=== PATIENT | male | born 1945 | race Caucasian/White ===

== ENCOUNTER 2021-08-17 07:32 | Emergency (ER) | payer MEDICARE, MEDICAID ==
[2021-08-17 08:10] LABS: PTT,PARTIAL THROMBOPLSTIN TIME 22.8 SEC (22.8-31.4)
[2021-08-17 08:14] LABS: ANION GAP 19.4 mmol/L (5-15); CHLORIDE,CL 103 mmol/L (98-107); SODIUM,NA 139 mmol/L (136-145)
[2021-08-17] MEDS: ALTEPLASE IV ONE (08:55)
[2021-08-17] MEDS ORDERED: Sodium Chloride 0.9% 10 ML Syringe FLUSH PRN (09:06)
== END 2021-08-17 09:30 ==
LOC: KA.ED 07:32
DX: I63.9 Cerebral infarction, unspecified (principal); I45.10 Unspecified right bundle-branch block; I44.0 Atrioventricular block, first degree; Z20.822 Contact with and (suspected) exposure to COVID-19
CPT/HCPCS: 36415; 37195; 70450; 73030; 80053; 82550; 84484; 85025; 85610; 85730; 99285; J2997; Q3014; U0002; 93005

== ENCOUNTER 2021-08-26 10:09 | Inpatient (IN) | payer MEDICARE, MEDICAID ==
[2021-08-27] MEDS ORDERED: Acetaminophen 325 MG Tab PO PRN (17:07)
[2021-08-27] MEDS: Tamsulosin 0.4 MG Cap.ER PO SCH (20:01)
[2021-08-27] MEDS: atorvaSTATin 10 MG Tab PO SCH (20:02)
[2021-08-27] MEDS: Enoxaparin 100 MG/1 ML Syringe SUBCUT SCH (20:03)
[2021-08-28] MEDS: Enoxaparin 100 MG/1 ML Syringe SUBCUT SCH ×2 (08:35→20:26)
[2021-08-28] MEDS: Multivitamins with Minerals/Iron/Folic Acid/Lycopene Tab PO SCH (08:37)
[2021-08-28] MEDS: Finasteride 5 MG Tab PO SCH (08:37)
[2021-08-28] MEDS: Metoprolol Succinate 25 MG Tab.ER PO SCH (08:37)
[2021-08-28] MEDS: Tamsulosin 0.4 MG Cap.ER PO SCH (20:24)
[2021-08-28] MEDS: Ciprofloxacin 500 MG Tab PO SCH (20:25)
[2021-08-28] MEDS: atorvaSTATin 10 MG Tab PO SCH (20:25)
[2021-08-28] MEDS ORDERED: Lidocaine 2% Jelly 5 ML Tube TOP ONE (20:34)
[2021-08-28] MEDS ORDERED: Warfarin 2.5 MG Tab PO ONE (21:00)
[2021-08-28] MEDS ORDERED: Ciprofloxacin 500 MG Tab PO SCH (21:00)
[2021-08-28] MEDS: Acetaminophen 325 MG Tab PO PRN (21:11)
[2021-08-29 07:41] LABS: ANION GAP 11.1 mmol/L (5-15); CHLORIDE,CL 102 mmol/L (98-107); SODIUM,NA 137 mmol/L (136-145)
[2021-08-29] MEDS: Multivitamins with Minerals/Iron/Folic Acid/Lycopene Tab PO SCH (08:15)
[2021-08-29] MEDS: Ciprofloxacin 500 MG Tab PO SCH ×2 (08:15→20:00)
[2021-08-29] MEDS: Finasteride 5 MG Tab PO SCH (08:16)
[2021-08-29] MEDS: Metoprolol Succinate 25 MG Tab.ER PO SCH (08:28)
[2021-08-29] MEDS: Enoxaparin 100 MG/1 ML Syringe SUBCUT SCH ×2 (08:30→20:01)
[2021-08-29] MEDS: Acetaminophen 325 MG Tab PO PRN (17:09)
[2021-08-29] MEDS ORDERED: Warfarin 2 MG Tab PO SCH (18:00)
[2021-08-29] MEDS: atorvaSTATin 10 MG Tab PO SCH (20:00)
[2021-08-29] MEDS: Tamsulosin 0.4 MG Cap.ER PO SCH (20:00)
[2021-08-30] MEDS: Metoprolol Succinate 25 MG Tab.ER PO SCH (07:59)
[2021-08-30] MEDS: Multivitamins with Minerals/Iron/Folic Acid/Lycopene Tab PO SCH (07:59)
[2021-08-30] MEDS: Finasteride 5 MG Tab PO SCH (07:59)
[2021-08-30] MEDS: Enoxaparin 100 MG/1 ML Syringe SUBCUT SCH (08:00)
[2021-08-30] MEDS: Ciprofloxacin 500 MG Tab PO SCH ×2 (08:00→20:14)
[2021-08-30] MEDS: Acetaminophen 325 MG Tab PO PRN (09:50)
[2021-08-30] MEDS ORDERED: Warfarin 2 MG Tab PO SCH (18:00)
[2021-08-30] MEDS: Ferrous Sulfate 325 MG Tab PO SCH (18:12)
[2021-08-30] MEDS: Tamsulosin 0.4 MG Cap.ER PO SCH (20:14)
[2021-08-30] MEDS: atorvaSTATin 10 MG Tab PO SCH (20:14)
[2021-08-31] MEDS: Ciprofloxacin 500 MG Tab PO SCH ×2 (08:22→20:55)
[2021-08-31] MEDS: Ferrous Sulfate 325 MG Tab PO SCH (08:22)
[2021-08-31] MEDS: Finasteride 5 MG Tab PO SCH (08:22)
[2021-08-31] MEDS: Multivitamins with Minerals/Iron/Folic Acid/Lycopene Tab PO SCH (08:24)
[2021-08-31] MEDS: Metoprolol Succinate 25 MG Tab.ER PO SCH (08:24)
[2021-08-31] MEDS ORDERED: Warfarin 2 MG Tab PO ONE (18:00)
[2021-08-31] MEDS: Acetaminophen 325 MG Tab PO PRN (20:55)
[2021-08-31] MEDS: Tamsulosin 0.4 MG Cap.ER PO SCH (20:55)
[2021-08-31] MEDS: atorvaSTATin 10 MG Tab PO SCH (20:55)
[2021-09-01] MEDS: Acetaminophen 325 MG Tab PO PRN (06:18)
[2021-09-01 07:44] LABS: ANION GAP 12.3 mmol/L (5-15); CHLORIDE,CL 104 mmol/L (98-107); SODIUM,NA 138 mmol/L (136-145)
[2021-09-01] MEDS: Multivitamins with Minerals/Iron/Folic Acid/Lycopene Tab PO SCH (08:10)
[2021-09-01] MEDS: Ferrous Sulfate 325 MG Tab PO SCH (08:10)
[2021-09-01] MEDS: Ciprofloxacin 500 MG Tab PO SCH ×2 (08:10→20:19)
[2021-09-01] MEDS: Finasteride 5 MG Tab PO SCH (08:10)
[2021-09-01] MEDS: Metoprolol Succinate 25 MG Tab.ER PO SCH (09:30)
[2021-09-01] MEDS ORDERED: Warfarin 2 MG Tab PO ONE (18:00)
[2021-09-01] MEDS: Tamsulosin 0.4 MG Cap.ER PO SCH (20:19)
[2021-09-01] MEDS: atorvaSTATin 10 MG Tab PO SCH (20:19)
[2021-09-02] MEDS: Acetaminophen 325 MG Tab PO PRN ×2 (06:22→20:18)
[2021-09-02] MEDS: Ferrous Sulfate 325 MG Tab PO SCH (09:12)
[2021-09-02] MEDS: Ciprofloxacin 500 MG Tab PO SCH ×2 (09:12→20:17)
[2021-09-02] MEDS: Finasteride 5 MG Tab PO SCH (09:12)
[2021-09-02] MEDS: Multivitamins with Minerals/Iron/Folic Acid/Lycopene Tab PO SCH (09:12)
[2021-09-02] MEDS: Metoprolol Succinate 25 MG Tab.ER PO SCH (10:35)
[2021-09-02] MEDS ORDERED: Warfarin 2 MG Tab PO ONE (18:00)
[2021-09-02] MEDS: Tamsulosin 0.4 MG Cap.ER PO SCH (20:17)
[2021-09-02] MEDS: atorvaSTATin 10 MG Tab PO SCH (20:17)
[2021-09-03] MEDS: Metoprolol Succinate 25 MG Tab.ER PO SCH (08:49)
[2021-09-03] MEDS: Finasteride 5 MG Tab PO SCH (08:49)
[2021-09-03] MEDS: Multivitamins with Minerals/Iron/Folic Acid/Lycopene Tab PO SCH (08:49)
[2021-09-03] MEDS ORDERED: Warfarin 2.5 MG Tab PO ONE (18:00)
[2021-09-03] MEDS ORDERED: Warfarin 2 MG Tab PO ONE (18:00)
[2021-09-03] MEDS: Tamsulosin 0.4 MG Cap.ER PO SCH (20:15)
[2021-09-03] MEDS: atorvaSTATin 10 MG Tab PO SCH (20:15)
[2021-09-04] MEDS ORDERED: Ferrous Sulfate 325 MG Tab PO SCH (09:00)
[2021-09-04] MEDS: Finasteride 5 MG Tab PO SCH (09:31)
[2021-09-04] MEDS: Metoprolol Succinate 25 MG Tab.ER PO SCH (09:31)
[2021-09-04] MEDS: Multivitamins with Minerals/Iron/Folic Acid/Lycopene Tab PO SCH (09:31)
== END 2021-09-04 13:35 | disposition home health service (06) | DRG 948 ==
LOC: UNDOADMIN 08-27 14:57 → KA.MS 08-27 14:57
PROVIDERS: ADMIT Family Medicine; ATTEND Family Medicine
DX: R53.81 Other malaise (principal); I82.412 Acute embolism and thrombosis of left femoral vein; I74.2 Embolism and thrombosis of arteries of the upper extremities; D62 Acute posthemorrhagic anemia; R91.8 Other nonspecific abnormal finding of lung field; N40.1 Benign prostatic hyperplasia with lower urinary tract symptoms; Z20.822 Contact with and (suspected) exposure to COVID-19; R33.8 Other retention of urine; N28.89 Other specified disorders of kidney and ureter; M19.90 Unspecified osteoarthritis, unspecified site; H54.7 Unspecified visual loss; I10 Essential (primary) hypertension; Z96.649 Presence of unspecified artificial hip joint; E78.00 Pure hypercholesterolemia, unspecified; Z79.01 Long term (current) use of anticoagulants; Z95.2 Presence of prosthetic heart valve; Z87.891 Personal history of nicotine dependence; Z79.899 Other long term (current) drug therapy; Z86.73 Personal history of transient ischemic attack (TIA), and cerebral infarction without residual deficits
CPT/HCPCS: 36415; 51702; 80053; 81001; 85025; 85610; 87086; 87186; 97110-GP; 97161-GP; A9270-GY; J1650; U0002